=== PATIENT | male | born 1995 | race American Indian/Alaskan Native ===

== ENCOUNTER 2017-06-16 18:35 | Emergency (ER) | payer SELFPAY ==
[2017-06-16 19:02] VITALS: BP 116/94
--- NOTE | 2017-06-16 20:30 | Emergency Department Report ---
Minor Respiratory - HPI Chief Complaint: Upper Respiratory Infection Stated Complaint: COUGH Time Seen by Provider: 06/16/17 20:26 Duration: 2 Days Pain Location: Other (A she has generalized body aches and a 3 out of 10 in severity) Severity: moderate Minor Respiratory: Yes Rhinorrhea, Yes Sore Throat (improved today. Patient states he can swallow), Yes Able to Tolerate Fluids, Yes Cough (nonproductive), Yes Fever (subjective), No Ear Pain, No Sick Contacts, No Hemoptysis, No Chest Pain, No Shortness of Breath ED Review of Systems ROS: Stated complaint: COUGH Other details as noted in HPI Comment: All other systems reviewed and negative ED Past Medical Hx - Past Medical History Previous Medical History?: No - Surgical History Past Surgical History?: No - Social History Smoking Status: Never Smoker Substance Use Type: None - Medications Home Medications: Home Medications Medication Instructions Recorded Confirmed Last Taken Type Benzonatate [Tessalon Perle] 100 mg PO TID #12 capsule 06/16/17 Unknown Rx HYDROcodone/APAP 5-325 [[place] 1 each PO Q6HR PRN #12 tablet 06/16/17 Unknown Rx 5/325] predniSONE [Deltasone] 20 mg PO QDAY #5 tab 06/16/17 Unknown Rx Minor Respiratory Exam - Exam General: Vital signs noted. No distress. Alert and acting appropriately. HEENT: Yes Moist Mucous Membranes, No Pharyngeal Erythema, No Pharyngeal Exudates, No Rhinorrhea, No Conjuctival Injection, No Frontal Tenderness, No Maxillary Tenderness Ear: Neither TM Bulge, Neither TM Erythema, Neither EAC Pain, Neither EAC Discharge Neck: Yes Supple, No Adenopathy Lungs: Yes Good Air Exchange, No Wheezes, No Ronchi, No Stridor, No Cough, No Labored Respirations, No Retractions, No Use of Accessory Muscles, No Other Abnormal Lung Sounds Heart: Yes Regular, No Murmur Abdomen: Yes Normal Bowel Sounds, No Tenderness, No Peritoneal Signs Skin: No Rash, No Edema Neurologic: Alert and oriented, no deficits. Musculoskeletal: Unremarkable. ED Course Vital Signs 06/16/17 18:59 Temperature 98.8 F Pulse Rate 101 H Respiratory 20 Rate Blood Pressure 116/94 O2 Sat by Pulse 99 Oximetry ED Medical Decision Making - Medical Decision Making She'll be treated for symptomatic relief of flulike symptoms be discharged home Critical care attestation.: If time is entered above; I have spent that time in minutes in the direct care of this critically ill patient, excluding procedure time. ED Disposition Clinical Impression: Flu-like symptoms Disposition: DC- TO HOME OR SELFCARE Is pt being admited?: No Does the pt Need Aspirin: No Condition: Stable Instructions: Influenza (ED) Prescriptions: Benzonatate [Tessalon Perle] 100 mg PO TID #12 capsule HYDROcodone/APAP 5-325 [[place] 5/325] 1 each PO Q6HR PRN #12 tablet PRN Reason: Pain predniSONE [Deltasone] 20 mg PO QDAY #5 tab Forms: Work/School Release Form(ED)
== END 2017-06-16 20:58 | disposition home or self-care (01) ==
LOC: ED 18:35
DX: R50.9 Fever, unspecified (principal); J02.9 Acute pharyngitis, unspecified
CPT/HCPCS: 99282

== ENCOUNTER 2017-09-24 13:26 | Emergency (ER) | payer SELFPAY ==
[2017-09-24 13:38] VITALS: BP 140/68
[2017-09-24] MEDS ORDERED: MOTRIN PO ONE (14:02)
--- NOTE | 2017-09-24 14:02 | Emergency Department Report ---
ED Extremity Problem HPI - General Chief complaint: Extremity Problem,Nontraumatic Stated complaint: PAIN/BIG TOE Time Seen by Provider: 09/24/17 13:51 Source: patient Mode of arrival: Ambulatory Limitations: No Limitations - History of Present Illness Initial comments: 22-year-old male past medical history none presents with complaint of right great toe pain. Patient denies any direct trauma. Patient states that he has noticed changes in the texture of his toenail for several years. Denies any fevers chills or difficulty walking. Primarily complaining of discomfort at nail edge. MD Complaint: extremity pain Onset/Timin -: days(s) Location: right, lower extremity Radiation: distal Severity scale (0 -10): 3 Quality: aching Consistency: intermittent Worsens with: nothing Associated Symptoms: denies other symptoms - Related Data Previous Rx's Medication Instructions Recorded Last Taken Type Benzonatate [Tessalon Perle] 100 mg PO TID #12 capsule 06/16/17 Unknown Rx HYDROcodone/APAP 5-325 [[place] 1 each PO Q6HR PRN #12 tablet 06/16/17 Unknown Rx 5/325] predniSONE [Deltasone] 20 mg PO QDAY #5 tab 06/16/17 Unknown Rx Ibuprofen [Motrin] 800 mg PO Q8HR PRN #20 tablet 09/24/17 Unknown Rx Undecylenic Acid [Fungi-Nail] 1 applicatio TP QDAY #1 solution 09/24/17 Unknown Rx Allergies Allergy/AdvReac Type Severity Reaction Status Date / Time No Known Allergies Allergy Unverified 06/16/17 18:58 ED Review of Systems ROS: Stated complaint: PAIN/BIG TOE Other details as noted in HPI Constitutional: denies: chills, fever Eyes: denies: eye pain, eye discharge, vision change ENT: denies: ear pain, throat pain Respiratory: denies: cough, shortness of breath, wheezing Cardiovascular: denies: chest pain, palpitations Endocrine: no symptoms reported Gastrointestinal: denies: abdominal pain, nausea, diarrhea Genitourinary: denies: urgency, dysuria Musculoskeletal: denies: back pain, joint swelling, arthralgia Skin: denies: rash, lesions Neurological: denies: headache, weakness, paresthesias Psychiatric: denies: anxiety, depression Hematological/Lymphatic: denies: easy bleeding, easy bruising ED Past Medical Hx - Past Medical History Previous Medical History?: No - Surgical History Past Surgical History?: No - Social History Smoking Status: Current Some Day Smoker Substance Use Type: Marijuana - Medications Home Medications: Home Medications Medication Instructions Recorded Confirmed Last Taken Type Benzonatate [Tessalon Perle] 100 mg PO TID #12 capsule 06/16/17 Unknown Rx HYDROcodone/APAP 5-325 [[place] 1 each PO Q6HR PRN #12 tablet 06/16/17 Unknown Rx 5/325] predniSONE [Deltasone] 20 mg PO QDAY #5 tab 06/16/17 Unknown Rx Ibuprofen [Motrin] 800 mg PO Q8HR PRN #20 tablet 09/24/17 Unknown Rx Undecylenic Acid [Fungi-Nail] 1 applicatio TP QDAY #1 solution 09/24/17 Unknown Rx ED Physical Exam - General Limitations: No Limitations General appearance: alert, in no apparent distress - Head Head exam: Present: atraumatic, normocephalic - Eye Eye exam: Present: normal appearance, PERRL, EOMI - ENT ENT exam: Present: mucous membranes moist - Neck Neck exam: Present: normal inspection - Respiratory Respiratory exam: Present: normal lung sounds bilaterally. Absent: respiratory distress - Cardiovascular Cardiovascular Exam: Present: regular rate, normal rhythm. Absent: systolic murmur, diastolic murmur, rubs, gallop - GI/Abdominal GI/Abdominal exam: Present: soft, normal bowel sounds - Rectal Rectal exam: Present: deferred - Extremities Exam Extremities exam: Present: normal inspection - Expanded Lower Extremity Exam Right Ankle exam: Present: normal inspection, full ROM Foot/Toe exam: Present: full ROM, deformity (onychomycosis of the right great toenail) Neuro vascular tendon exam: Present: no vascular compromise - Back Exam Back exam: Present: normal inspection - Neurological Exam Neurological exam: Present: alert, oriented X3 - Psychiatric Psychiatric exam: Present: normal affect, normal mood - Skin Skin exam: Present: warm, dry, intact, normal color. Absent: rash ED Course Vital Signs 09/24/17 13:34 Temperature 98.2 F Pulse Rate 60 Respiratory 16 Rate Blood Pressure 140/68 O2 Sat by Pulse 100 Oximetry ED Medical Decision Making - Medical Decision Making A/P: Right great toe pain 1-no direct trauma, x-ray unremarkable 2-onychomycosis right great toenail 3-topical antifungals, Tinactin, patient follow up with podiatry 4- Critical care attestation.: If time is entered above; I have spent that time in minutes in the direct care of this critically ill patient, excluding procedure time. ED Disposition Clinical Impression: Onychomycosis, Toe pain, right Disposition: DC- TO HOME OR SELFCARE Is pt being admited?: No Does the pt Need Aspirin: No Condition: Stable Instructions: Tinea Pedis (ED) Prescriptions: Ibuprofen [Motrin] 800 mg PO Q8HR PRN #20 tablet PRN Reason: Pain Undecylenic Acid [Fungi-Nail] 1 applicatio TP QDAY #1 solution Referrals: [facility] [Provider Group] - 3-5 Days JANETTE VELÁSQUEZ DPM [Staff Physician] - 3-5 Days Forms: Accompanied Note, Work/School Release Form(ED) Time of Disposition: 14:50
--- NOTE | 2017-09-24 14:45 | XRay Report ---
RIGHT TOES, 3 views: History: Right great toe pain. The bony architecture is intact. Bony alignment is normal. No soft tissue abnormalities are seen. The joint spaces appear preserved. IMPRESSION: Normal right toes.
== END 2017-09-24 15:01 | disposition home or self-care (01) ==
LOC: ED 13:26
DX: B35.1 Tinea unguium (principal); F17.200 Nicotine dependence, unspecified, uncomplicated
CPT/HCPCS: 99283